=== PATIENT | female | born 1980 | race Caucasian/White ===

== ENCOUNTER → 2016-08-28 | Outpatient (CLI) | payer BC ==
--- NOTE | 2016-08-28 15:05 | KCIC ---
PROCEDURE Three-view left foot HISTORY Left lateral foot pain since yesterday. COMPARISON None FINDINGS No evidence of acute fracture or bone destruction. Joint spaces and alignment appear intact. No evidence of soft tissue abnormality. IMPRESSION No acute radiographic findings. Electronically signed by: Beni Lopez MD (Aug 28, 2016 15:04:19)
== END | disposition home or self-care (01) ==
LOC: KCIC 13:38
PROVIDERS: ATTEND Family Medicine
DX: M79.672 Pain in left foot (principal)
CPT/HCPCS: 73630